=== PATIENT | female | born 1995 | race Caucasian/White ===

== ENCOUNTER 2025-03-13 18:47 | Observation (INO) | payer BC, SELFPAY ==
[2025-03-13 21:56] VITALS: BMI 26.9
--- NOTE | 2025-03-15 13:36 | PM.OBTRLD ---
OB - Triage/Final Diagnosis Visit Information Comments/Additional reasons for admission: I have assessed the risk for this patient, Siri Dumont, and determined that she would benefit from observation care. Final Diagnosis (1) Irregular uterine contractions: Code(s): O47.9 - False labor, unspecified Status: Acute
== END 2025-03-13 22:10 | disposition home or self-care (01) ==
PROVIDERS: Admitting Provider Obstetrics & Gynecology; PCP Registered Nurse; Visit Provider Obstetrics & Gynecology
DX: O47.1 False labor at or after 37 completed weeks of gestation (principal); Z3A.40 40 weeks gestation of pregnancy
CPT/HCPCS: G0378; G0379

== ENCOUNTER 2025-03-14 01:04 | Inpatient (IN) | payer BC, SELFPAY ==
[2025-03-14] VITALS (253 sets, daily range): BP systolic 87–136; BP diastolic 52–94; PULSE 59–101; RESP 16; TEMP 36.6–38.5; O2SAT 90–100; BMI 26.6
[2025-03-14] MEDS: ONDANSETRON INJ 4 MG/2 ML VIAL IV PUSH (01:40)
[2025-03-14] MEDS: LACTATED RINGERS 1,000 ML 125 ML IV CONT ×2 (01:45→06:55)
--- NOTE | 2025-03-14 01:56 | WPDANESEPP ---
Anes - Eval Pre Procedure Procedure: labor epidural Date/Time: 03/14/25 01:56 Surgeon: kailey Preop Diagnosis: pain during labor Pre Op Diagnosis: Contractions Patient Data Age: 29 Gender: F Height: Weight: Allergies Allergy/AdvReac Type Severity Reaction Status Date / Time cefdinir Allergy Unknown c diff Verified 03/09/25 13:58 Home Medications ?Medication ?Instructions ?Recorded ?Confirmed ?Type lactobacillus combination no.4 3 3,000 mmu cells PO DAILY 01/25/25 03/09/25 History billion cell capsule (Probiotic) vitamins 30 30 mg iron-10 cap PO 01/25/25 03/09/25 History mg iron-folic acid 1 mg-om3 capsule Laboratory Tests 03/14/25 01:51 WBC Pending RBC Pending Hgb Pending Hct Pending MCV Pending MCH Pending MCHC Pending RDW Pending Plt Count Pending MPV Pending Immature Gran % (Auto) Pending Neut % (Auto) Pending Lymph % (Auto) Pending [place] % (Auto) Pending Eos % (Auto) Pending Baso % (Auto) Pending Lymph # (Auto) Pending [place] # (Auto) Pending Eos # (Auto) Pending Baso # (Auto) Pending Abs Immat Gran (auto) Pending Absolute Neuts (auto) Pending Absolute Nucleated RBC Pending Nucleated RBC % Pending Patient hx anesthesia problems: none Family hx anesthesia problems: none Results Review: All pre-operative results and documents have been reviewed as part of the pre-operative evaluation. COUNT INCLUDES THE [facility] Past Medical History Medical History (Updated 03/14/25 @ 01:56 by Jojo Durham CRNA) Anxiety IUP (intrauterine ), incidental Hypoglycemia ADHD Surgical History Surgical History [place] teeth extracted Family History Family History Father Patient's father is in good health Mother Breast cancer Grandparent Diabetes mellitus Lung cancer Dementia Social History Social History Smoking status: Never smoker Alcohol intake: current Alcohol use details: none with Substance use: never Lack of Transportation: No Lack of Food: Never True Current Housing: I Have Housing Concerned About Future Housing: No Difficulty Paying Gas/Electric Bills: No Difficulty Paying for Meds: No Currently Unemployed: No Education: Bachelor's Degree Difficulty w/ Childcare or Family Care: No Spiritual care concerns: No Exam Day of Procedure 03/14/25 01:56
[2025-03-14 01:57] LABS: Hematocrit 34.5 % (37.0-47.0); Hemoglobin 11.5 g/dL (12.0-15.0); Immature Granulocyte Percent A 1.4 % (0-0.5); Lymphocytes Absolute Auto 2.50 K/mm3 (0.9-3.2); Mean Corpuscular HGB Conc 33.3 g/dl (32-36); Mean Corpuscular Hemoglobin 28.6 pg (26-34); Mean Corpuscular Volume 85.8 fl (80-100); Nucleated Red Blood Cells Absolute Auto 0.000 K/mm3 (0.0-0.012); Nucleated Red Blood Cells Perc 0.0 % (0.0-0.2); Platelet Count Result 258 k/mm3 (150-375); Red Blood Count 4.02 M/mm3 (4.2-5.4); White Blood Count 14.7 K/mm3 (4.5-10.0)
[2025-03-14 02:35] LABS: Syphilis IgG/IgM Antibody Non-Reactive (Nonreactive)
--- NOTE | 2025-03-14 04:35 | LDADM ---
This patient, Siri Dumont, was admitted to Labor/Delivery/Recovery 105 on 03/14/25 at 01:04. Plans for labor, pain management and were discussed with patient. Patient/family oriented to hospital policies and general routines including ID bracelet, bed and alarms, visiting hours, pain management, procedures, bathroom and other care routines, personal items, smoking policy, room service/diet and guest tray routines, infant security routines, and visiting hours. Patient/Family are encouraged to report perceived risks to care and to ask questions if they do not understand what they are told or what they should do. See OBIX for further documentation.
--- NOTE | 2025-03-14 08:45 | PM.IMHP ---
H&P: HPI History of Present Illness Date/Time: 03/14/25 08:45 Chief Complaint: contractions Narrative: Siri is a 29yo @ 40.3wks who presented overnight with painful and regular contractions. She had presented earlier in the night but was found to be 3cm. When she represented she was 6.5cm. She is now s/p epidural and comfortable. She denies vaginal bleeding or leakage of fluid. She is wanting the least interventions as possible. Her is complicated by: - Anxiety/ADHD Review of Systems Constitutional: Constitutional: Denies chills, Denies fever(s) and Denies headache(s) Eyes: Eyes: Denies change in vision ENT: Denies headache(s) Cardiovascular: Cardiovascular: Denies chest pain and Denies dyspnea Respiratory: Respiratory: Denies dyspnea Genitourinary: Genitourinary: Denies abnormal vaginal bleeding and Denies vaginal discharge Neurologic: Denies headache(s) Psychiatric: Psychiatric: Denies anxiety and Denies depression [facility] Past Medical History Medical History (Updated 03/14/25 @ 08:57 by Chantel Mistry MD) Anxiety IUP (intrauterine ), incidental Hypoglycemia ADHD Surgical History Surgical History [place] teeth extracted Family History Family History Father Patient's father is in good health Mother Breast cancer Grandparent Diabetes mellitus Lung cancer Dementia Social History Social History Smoking status: Never smoker Second hand tobacco smoke exposure: No Alcohol intake: current Alcohol use details: none with Substance use: never Lack of Transportation: No Lack of Food: Never True Current Housing: I Have Housing Concerned About Future Housing: No Difficulty Paying Gas/Electric Bills: No Difficulty Paying for Meds: No Currently Unemployed: No Education: Bachelor's Degree Difficulty w/ Childcare or Family Care: No Spiritual care concerns: No Meds Home Medications and Allergies Home Medications ?Medication ?Instructions ?Recorded ?Confirmed ?Type lactobacillus combination no.4 3 3,000 mmu cells PO DAILY 01/25/25 03/09/25 History billion cell capsule (Probiotic) vitamins 30 30 mg iron-10 cap PO 01/25/25 03/09/25 History mg iron-folic acid 1 mg-om3 capsule Allergies Allergy/AdvReac Type Severity Reaction Status Date / Time cefdinir Allergy Unknown c diff Verified 03/09/25 13:58 Vital Signs Vital Signs - 24 hr 03/14/25 02:06 03/14/25 02:08 03/14/25 02:09 Temperature Pulse Rate 82 64 Blood Pressure 119/83 124/85 Pulse Oximetry 90 03/14/25 02:11 03/14/25 02:13 03/14/25 02:16 Temperature Pulse Rate 75 79 75 Blood Pressure 122/79 115/75 109/66 Pulse Oximetry 95 97 03/14/25 02:18 03/14/25 02:20 03/14/25 02:21 Temperature Pulse Rate 74 82 Blood Pressure 129/69 118/74 Pulse Oximetry 99 03/14/25 02:23 03/14/25 02:25 03/14/25 02:26 Temperature Pulse Rate 81 78 Blood Pressure 124/71 120/67 Pulse Oximetry 99 03/14/25 02:28 03/14/25 02:30 03/14/25 02:31 Temperature Pulse Rate 76 81 Blood Pressure 121/71 114/69 Pulse Oximetry 99 03/14/25 02:33 03/14/25 02:35 03/14/25 02:36 Temperature Pulse Rate 78 80 Blood Pressure 121/66 119/69 Pulse Oximetry 98 03/14/25 02:38 03/14/25 02:40 03/14/25 02:41 Temperature Pulse Rate 86 77 Blood Pressure 114/70 117/71 Pulse Oximetry 97 03/14/25 02:43 03/14/25 02:45 03/14/25 02:46 Temperature Pulse Rate 87 96 Blood Pressure 117/71 112/75 Pulse Oximetry 98 03/14/25 02:48 03/14/25 02:50 03/14/25 02:51 Temperature Pulse Rate 82 78 Blood Pressure 120/76 113/68 Pulse Oximetry 98 03/14/25 02:53 03/14/25 02:55 03/14/25 02:56 Temperature Pulse Rate 88 85 Blood Pressure 114/75 115/75 Pulse Oximetry 98 03/14/25 02:58 03/14/25 03:00 03/14/25 03:01 Temperature Pulse Rate 88 82 Blood Pressure 107/69 117/71 Pulse Oximetry 99 03/14/25 03:03 03/14/25 03:06 03/14/25 03:11 Temperature Pulse Rate 59 L Blood Pressure 93/60 L Pulse Oximetry 99 95 03/14/25 03:15 03/14/25 03:16 03/14/25 03:21 Temperature Pulse Rate 78 Blood Pressure 127/74 Pulse Oximetry 98 98 03/14/25 03:26 03/14/25 03:30 03/14/25 03:31 Temperature Pulse Rate 78 Blood Pressure 123/70 Pulse Oximetry 98 98 03/14/25 03:36 03/14/25 03:41 03/14/25 03:45 Temperature Pulse Rate 79 Blood Pressure 115/70 Pulse Oximetry 98 98 03/14/25 03:46 03/14/25 03:51 03/14/25 03:56 Temperature Pulse Rate Blood Pressure Pulse Oximetry 97 97 96 03/14/25 04:00 03/14/25 04:01 03/14/25 04:06 Temperature Pulse Rate 84 Blood Pressure 110/94 H Pulse Oximetry 98 97 03/14/25 04:11 03/14/25 04:16 03/14/25 04:17 Temperature Pulse Rate 77 Blood Pressure 110/52 L Pulse Oximetry 98 98 03/14/25 04:21 03/14/25 04:26 03/14/25 04:30 Temperature 99.9 F H Pulse Rate 80 Blood Pressure 110/65 Pulse Oximetry 98 98 03/14/25 04:31 03/14/25 04:36 03/14/25 04:41 Temperature Pulse Rate Blood Pressure Pulse Oximetry 98 97 98 03/14/25 04:45 03/14/25 04:46 03/14/25 04:51 Temperature Pulse Rate 70 Blood Pressure 104/56 L Pulse Oximetry 98 97 03/14/25 04:56 03/14/25 05:00 03/14/25 05:01 Temperature Pulse Rate 68 Blood Pressure 102/54 L Pulse Oximetry 98 97 03/14/25 05:06 03/14/25 05:11 03/14/25 05:15 Temperature Pulse Rate 74 Blood Pressure 103/58 L Pulse Oximetry 96 95 03/14/25 05:16 03/14/25 05:21 03/14/25 05:26 Temperature Pulse Rate Blood Pressure Pulse Oximetry 95 95 96 03/14/25 05:30 03/14/25 05:31 03/14/25 05:36 Temperature Pulse Rate 72 Blood Pressure 100/58 L Pulse Oximetry 96 96 03/14/25 05:41 03/14/25 05:45 03/14/25 05:46 Temperature Pulse Rate 75 Blood Pressure 99/59 L Pulse Oximetry 97 96 03/14/25 05:51 03/14/25 05:56 03/14/25 06:00 Temperature Pulse Rate 67 Blood Pressure 98/55 L Pulse Oximetry 96 96 03/14/25 06:01 03/14/25 06:06 03/14/25 06:11 Temperature Pulse Rate Blood Pressure Pulse Oximetry 97 97 99 03/14/25 06:15 03/14/25 06:16 03/14/25 06:21 Temperature 98.6 F 98.9 F Pulse Rate 70 Blood Pressure 87/52 L Pulse Oximetry 100 100 03/14/25 06:26 03/14/25 06:30 03/14/25 06:31 Temperature Pulse Rate 67 Blood Pressure 104/65 Pulse Oximetry 99 100 03/14/25 06:36 03/14/25 06:41 03/14/25 06:45 Temperature Pulse Rate 67 Blood Pressure 105/65 Pulse Oximetry 99 99 03/14/25 06:46 03/14/25 06:51 03/14/25 06:56 Temperature Pulse Rate Blood Pressure Pulse Oximetry 99 100 100 03/14/25 07:00 03/14/25 07:01 03/14/25 07:06 Temperature Pulse Rate 69 Blood Pressure 109/63 Pulse Oximetry 100 99 03/14/25 07:11 03/14/25 07:15 03/14/25 07:16 Temperature Pulse Rate 71 Blood Pressure 108/69 Pulse Oximetry 100 99 03/14/25 07:21 03/14/25 07:26 03/14/25 07:30 Temperature Pulse Rate 77 Blood Pressure 117/70 Pulse Oximetry 99 99 03/14/25 07:31 03/14/25 07:36 03/14/25 07:41 Temperature Pulse Rate Blood Pressure Pulse Oximetry 98 97 98 03/14/25 07:45 03/14/25 07:46 03/14/25 07:51 Temperature Pulse Rate 82 Blood Pressure 114/72 Pulse Oximetry 98 99 03/14/25 07:56 03/14/25 08:00 03/14/25 08:01 Temperature Pulse Rate 76 Blood Pressure 97/63 L Pulse Oximetry 99 97 03/14/25 08:06 03/14/25 08:11 03/14/25 08:15 Temperature Pulse Rate 69 Blood Pressure 96/57 L Pulse Oximetry 99 99 03/14/25 08:16 03/14/25 08:21 03/14/25 08:26 Temperature Pulse Rate Blood Pressure Pulse Oximetry 98 98 98 03/14/25 08:30 03/14/25 08:31 03/14/25 08:36 Temperature Pulse Rate 73 Blood Pressure 101/58 L Pulse Oximetry 98 98 03/14/25 08:41 Temperature Pulse Rate Blood Pressure Pulse Oximetry 99 Exam Const: General: cooperative, healthy appearing, comfortable and no acute distress Orientation/consciousness: patient oriented x3 Resp: Effort & Inspection: normal respiratory effort Cardio: Rate: regular rate GI: GI Palp: No abdominal tenderness : Other: FHT's: 150's/ mod amairani/ + accels/ no decels - cat 1 TOCO: ctxs q3-4min Cervix: 8/90/-1 Membranes: AROM clear 0905 Presentation: cephalic Skin: General skin exam: normal color Neuro: General: patient oriented x3 Extrem: General: normal to inspection Psych: Appearance: grossly normal Affect: normal affect Attitude: cooperative H&P: Results Labs Labs: Short CBC 03/14/25 Range/Units 01:51 WBC 14.7 H (4.5-10.0) K/mm3 Hgb 11.5 L (12.0-15.0) g/dL Hct 34.5 L (37.0-47.0) % Plt Count 258 (150-375) k/mm3 Assessment and Plan Assessment and plan (1) Active labor at term: Status: Acute Plan - Admitted overnight in active labor - S/p anesthesia consult w/ epidural placement - AROM, clear @ 0905 - Pt declining pitocin at this point, but juan carlos more regularly and I feel like it's ok to hold off since she allowed AROM. She does agree to pitocin after delivery. - Continuous monitoring - GBS neg
[2025-03-14] MEDS: OXYTOCIN 30 UNITS/NS 500 ML 30 UNITS/500 ML BAG IV CONT (13:36)
--- NOTE | 2025-03-14 16:53 | PM.OBPRVD ---
OB - Vaginal Delivery Note Procedure Delivery date: 03/14/25 Delivery augmentation: Rupture of Membranes and Pitocin Delivery monitor: External FHT and External Uterine Route of delivery: Episiotomy description: None Laceration Description: None Specimen: Yes (placenta) Quantitative Blood Loss (ml): 150 Anesthesia type: Epidural Disposition: Floor Complications: No immediate complications [place] Baby Date of : 03/14/25 Time of : 16:37 Gestational Age by Date: 40 (.3) Infant gender: Female presentation: vertex Placenta delivery description: Expressed Cord Vessel Description: 3 Vessels and Delayed Cord Clamping score one minute: 8 score five minutes: 9 Narrative: Siri had a protracted labor course and after being stuck at 8-9cm for multiple hours, she finally agreed to Pitocin augmentation. She was started on 2 milliunits of Pitocin and approximately 1 hour later she finally made change and was completely dilated. She pushed for approximately 30 minutes with good maternal effort. She delivered the head over intact perineum. No nuchal cord was palpated. She easily delivered the infant's shoulders and body without complication. The infant was immediately placed skin to skin and had spontaneous cry. Delayed cord clamping for 3 minutes was performed due to mom's request. The umbilical cord was then doubly clamped and cut by dad. A segment of cord was collected for cord gases. The remaining cord blood was collected for typing. With Pitocin running and gentle downward traction on the cord, the placenta delivered without complication. Her uterus was found to be firm with minimal bleeding. She was examined and a small right periurethral laceration was identified but was not bleeding, she declined stitches. Sponge, lap, instrument, and needle counts were correct at the end of the procedure. Mom and baby were left bonding in the birthing suite in stable condition.
[2025-03-14] MEDS: IBUPROFEN 600 MG TABLET PO (19:40)
[2025-03-14] MEDS: ACETAMINOPHEN 325 MG TABLET 650 MG PO (20:00)
--- NOTE | 2025-03-14 20:51 | OBPPTRN ---
Patient transferred to post room # 290 via wheelchair, in crib at moms side. Support person present. Oriented to unit, room, information board, rooming in, admission packet and security measures. Patient verbalizes understanding.
[2025-03-14] MEDS: BENZOCAINE 20% AER SPR (*SP) 56 GM CAN 1 SPRAY TOPICAL (21:06)
[2025-03-14] MEDS: WITCH HAZEL 40 PADS 1 PAD TOPICAL (21:07)
[2025-03-14] MEDS: LANOLIN (LANSINOH) 7.5 GM CREAM 1 APPLIC TOPICAL (21:37)
--- NOTE | 2025-03-14 21:38 | PC.NURSE ---
2130- Nipple shield provided to mother due to sore R nipple. Reviewed good handwashing, cleaning the nipple shield and the appropriate way to apply and use as a tool. Discussed with mom the nipple shield precautions, possible complications associated with the risks and benefits. Reviewed practicing with a nipple shield, then without and how to protect the milk supply and production. Mom and baby guide referred to as a resource for outpatient services, community resources and when to call a provider. Mom voiced understanding of the importance of hand expression, nipple stimulation and initiating a pumping schedule if infant continues to nurse with the shield. Reported to the Primary RN.
[2025-03-15 00:10] VITALS: BP 112/73; PULSE 77; RESP 14; TEMP 36.7; O2SAT 100
[2025-03-15 05:59] LABS: Hematocrit 30.0 % (37.0-47.0); Hemoglobin 9.7 g/dL (12.0-15.0); Mean Corpuscular HGB Conc 32.3 g/dl (32-36); Mean Corpuscular Hemoglobin 28.8 pg (26-34); Mean Corpuscular Volume 89.0 fl (80-100); Platelet Count Result 213 k/mm3 (150-375); Red Blood Count 3.37 M/mm3 (4.2-5.4); White Blood Count 18.2 K/mm3 (4.5-10.0)
--- NOTE | 2025-03-15 06:10 | PC.NURSE ---
Introductions were made, then consulted with patient to assess needs related to . Mother led the conversation with her?plans to feed?her and the?experience so far. Upon entering room, was being held by mother and she was attempting to latch infant to the left breast. Mother states that infant has been cluster feeding throughout the night and just finished a feeding ~30 minutes ago. Mother was able to latch without a nipple shield on the left breast. would suck and then begin to push mothers breast away. This RN attempted to burp infant to see if this was why was fussing rather than being hungry. spit up 3 large meconium stained amniotic fluid spit ups. Infant appears to be content after this episode and was swaddled and placed in the bassinet. Mother encouraged to call RN for assistance today as needed, mother states understanding.
--- NOTE | 2025-03-15 07:54 | S_PTH ---
PATIENT: Siri Dumont LOC: [facility] U#:[id number] AGE/SX: 29/F ROOM: 290 RE03/14/[address]: Anselmo Blackburn MD : [id number] BED: 00 DIS: 03/16/2025 SPEC #: [id number] RECD: 03/15/25 08:02 STATUS: LASHONDA REQ #: [id number] SCOTTIE: 03/15/25 07:[address]: Chantel Mistry DEPT: [facility] Surgical RECD BY: Richard Zendejas ENTERED: 03/15/25 08:02 SP TYPE: Surgical OTHR DR: MD Analisa Moncada, SUPERVISOR [employer] Tissues: A - Placenta Procedures: Hematoxylin and Eosin Stain Gross and Microscopic Level 5
[2025-03-15] MEDS: DOCUSATE SODIUM 100 MG CAPSULE PO ×2 (08:05→16:46)
[2025-03-15] MEDS: IBUPROFEN 600 MG TABLET PO ×2 (08:05→16:46)
[2025-03-15 08:20] VITALS: BP 114/63; PULSE 63; RESP 16; TEMP 36.9; O2SAT 98
--- NOTE | 2025-03-15 09:14 | P.PNOB_ITS ---
OB - PN: Subj Subjective Date/time seen: 03/15/25 09:14 Narrative: Pain OK. OB - PN: Obj Data Labs 03/15/25 04:23 Labs: Laboratory Results - last 24 hr 03/15/25 04:23 WBC 18.2 H RBC 3.37 L Hgb 9.7 L Hct 30.0 L MCV 89.0 MCH 28.8 MCHC 32.3 RDW 14.5 Plt Count 213 MPV 11.1 H OB - PN A/P Assessment and Plan (1) (normal spontaneous vaginal delivery): Code(s): O80 - Encounter for full-term uncomplicated delivery Status: Acute Plan day: 1 Comments: A: PPD#1, doing well. P: Routine care. Exam 2 Psych: Other: AVSS ABD soft, nontender, fundus firm EXT nontender
[2025-03-15] MEDS: WITCH HAZEL 40 PADS 1 PAD TOPICAL (09:15)
[2025-03-15] MEDS: DIBUCAINE 1% OINTMENT 30 GM TUBE 1 APPLIC TOPICAL (09:15)
--- NOTE | 2025-03-15 09:40 | PC.NURSE ---
Called to patient room to assist with latching infant. Upon entering room, was sleeping, swaddled and being held by mother. Once was unswaddled, she spit up a large amount of colostrum. Educated mother on burping infant after feedings. Once unswaddled, infant was placed in football position. Mother is able to latch infant independently - infant latched to the left breast and would suckle a few times and fall asleep. This happened several times when infant was placed on the breast. Encouraged mother to remain skin to skin with baby and respond to her feeding cues. Mother will call for assistance if does not latch and actively nurse within the hour. Primary RN updated.
[2025-03-15 12:22] VITALS: BP 116/66; PULSE 71; RESP 16; TEMP 36.9; O2SAT 97
--- NOTE | 2025-03-15 17:18 | PC.NURSE ---
1718. Breast pump provided due to mom using nipple shield. Instructions given on cleaning, care, usage, that there should be no pain, pumping schedule for milk production, collection, and storage of human milk. Patient was assessed for correct placement, flange size, to pump for comfort and nipple stretching/stimulation for adequate milk production every 3 hours (8 times in 24 hours) 1-2 times at night. Parents are encouraged to record the pumping schedule on the feeding sheet.?Mother voiced understanding of the education shared along with mom/baby guide and the pump measurement, flange fit handout for additional resource information. Reported to the Primary RN.
[2025-03-15] MEDS: ACETAMINOPHEN 325 MG TABLET 650 MG PO (20:03)
[2025-03-15 20:05] VITALS: BP 133/71; PULSE 69; RESP 16; TEMP 36.7; O2SAT 97
[2025-03-16] MEDS: DOCUSATE SODIUM 100 MG CAPSULE PO (08:00)
[2025-03-16] MEDS: IBUPROFEN 600 MG TABLET PO (08:00)
[2025-03-16 09:10] VITALS: BP 107/52; PULSE 83; RESP 18; TEMP 36.6; O2SAT 97
--- NOTE | 2025-03-16 09:21 | P.PNOB_ITS ---
OB - PN: Subj Subjective Date/time seen: 03/16/25 09:21 Narrative: Pain OK. Would like to go home. OB - PN: Obj Data Labs 03/15/25 04:23 OB - PN A/P Plan day: 2 Comments: A: PPD#2, doing well. P: Home to f/u 6 weeks. Exam 2 Psych: Other: AVSS ABD soft, nontender, fundus firm EXT nontender
--- NOTE | 2025-03-16 09:22 | P.DS_ITS ---
DS: Admitting Diagnosis Discharge Date 03/16/25 Admitting Diagnosis IUP at 40 3/7 weeks Labor DS: Discharge Diagnosis Discharge Diagnosis (1) (normal spontaneous vaginal delivery): Code(s): O80 - Encounter for full-term uncomplicated delivery Status: Acute OB - DS: Summary OB Procedures : None OB Procedures Intrapartum: Spontaneous Vag Delivery OB Procedures: : None Peripartum Data Laceration Description: None Episiotomy description: None Time Spent with Patient Time attestation: Total time spent providing and/or coordinating discharge services: DS: Data Data Completed and Pending Pending studies at discharge: Pending at discharge 03/15/25 07:54 Surgical [PTH] Routine Discharge Plan Discharge Attending physician on discharge: Anselmo Blackburn Discharging Clinician: Anselmo Blackburn Patient Disposition: Home Activity: pelvic rest Diet: regular Discharge Instructions: Call or return if temperature above 100.4? F, increased abdominal pain, increased vaginal bleeding or any new problems. Patient Language: Barbadian Stand Alone Forms: General Discharge Information Follow-up/Referrals: Anselmo Blackburn MD [Physician, BUSINESS STRATEGY MANAGER] - 6 Weeks Discharge Medications: New ibuprofen 600 mg tablet 600 mg PO Q6H PRN (Reason: cramps) Qty: 30 0RF ferrous sulfate 325 mg (65 mg iron) tablet 325 mg PO DAILY Qty: 30 0RF Continued PNV [id number] 30 mg iron-10 mg iron-1 mg capsule PO Probiotic 3 billion cell capsule 3,000 mmu cells PO DAILY Rx Instructions: administer with a meal Date of admission: 03/14/25 01:04 Primary Care Provider: LindaAnalisa Admitting Provider: Anselmo Blackburn Attending physician on admission: Anselmo Blackburn Condition: Stable
[2025-03-17 10:57] VITALS: BP 119/74; PULSE 76; RESP 18; TEMP 37; O2SAT 99
== END 2025-03-16 14:04 | disposition home or self-care (01) | DRG 807 ==
LOC: ANHLDR 01:59 → ANHOB2 19:44
PROVIDERS: Admitting Provider Obstetrics & Gynecology; PCP Registered Nurse; Visit Provider Obstetrics & Gynecology
DX: O99.344 Other mental disorders complicating childbirth (principal); Z37.0 Single live birth; F41.9 Anxiety disorder, unspecified; Z3A.40 40 weeks gestation of pregnancy
CPT/HCPCS: 36415; 85025; 85027; 86593; 86850; 86900; 86901; 88307; A9270; J2405; J2590; J2795; J7120